=== PATIENT | female | born 1960 | race Caucasian/White ===

== ENCOUNTER 2018-04-20 21:13 | Emergency (ER) | payer OTHER ==
[~2018-04-20] VITALS: Ht 162.6 cm; Wt 113.4 kg
[2018-04-20 21:18] VITALS: BP 156/87
--- NOTE | 2018-04-20 21:39 | NUR ---
Dr. Ribeiro evaluating patient at bedside.
--- NOTE | 2018-04-20 21:40 | NUR ---
PATIENT PRESENTS TO ED WITH COUGH X2 WEEKS. PT DENIES N/V/D; SKIN IS PINK/WARM/DRY; AAOX4 WITH EVEN AND STEADY GAIT; LUNGS CLEAR BL; HR EVEN AND REGULAR; PT DENIES ANY FEVER, CP, SOB, OR COUGH AT THIS TIME; PATIENT STATES PAIN OF 0/10 AT THIS TIME; VSS; PATIENT POSITIONED FOR COMFORT; HOB ELEVATED; BEDRAILS UP X1; BED DOWN. ER MD MADE AWARE OF PT STATUS.
[2018-04-20] MEDS ORDERED: AZITHROMYCIN 250 MG TAB PO ONE (21:45)
[2018-04-20 22:08] VITALS: BP 148/87
--- NOTE | 2018-04-20 22:08 | NUR ---
Patient discharged with v/s stable. Written and verbal after care instructions given and explained. Patient alert, oriented and verbalized understanding of instructions. Ambulatory with steady gait. All questions addressed prior to discharge. ID band removed. Patient advised to follow up with PMD. Rx of AZITHROMYCIN given. Patient educated on indication of medication including possible reaction and side effects. Opportunity to ask questions provided and answered.
== END 2018-04-20 22:08 | disposition home or self-care (01) ==
LOC: MED 21:13
DX: J32.9 Chronic sinusitis, unspecified (principal)
CPT/HCPCS: 99283

== ENCOUNTER 2020-06-25 11:34 | Emergency (ER) | payer OTHER ==
[~2020-06-25] VITALS: Ht 152.4 cm; Wt 119.7 kg
[2020-06-25 11:55] VITALS: BP 144/86
[2020-06-25] MEDS ORDERED: diazePAM 5 MG TAB PO ONE (12:30)
[2020-06-25] MEDS ORDERED: KETOROLAC 30 MG/ML VIAL IM ONE (12:30)
--- NOTE | 2020-06-25 13:26 | NUR ---
DENIES FALLS/TRAUMA, N/V, F/C, LOSS BOWEL/BLADDER FUNCTION, NUMBNESS/TINGLING. AMBULATORY. TYLENOL NO RELIEF. AMBULATE WITH ASSIST. NO OBVIOUS DEFORMITY OR INJURIES NOTED. VSS. A&O X4. CMS INTACT. HX- HTN NKA
--- NOTE | 2020-06-25 13:40 | NUR ---
PT BEING EVALUATED BY [facility]
[2020-06-25 14:13] VITALS: BP 144/86
--- NOTE | 2020-06-25 14:14 | NUR ---
Patient discharged with v/s stable. Written and verbal after care instructions given and explained. Patient alert, oriented and verbalized understanding of instructions. Ambulatory with steady gait. All questions addressed prior to discharge. ID band removed. Patient advised to follow up with PMD. Rx of VALIUM & NAPROSYN given. Patient educated on indication of medication including possible reaction and side effects. Opportunity to ask questions provided and answered.
== END 2020-06-25 14:14 | disposition home or self-care (01) ==
LOC: MED 11:34
DX: M54.5 Low back pain (principal); Z98.890 Other specified postprocedural states
CPT/HCPCS: 74176; 96372; 99284; J1885